=== PATIENT | female | born 1970 | race Caucasian/White ===

== ENCOUNTER 2016-10-08 15:10 | Emergency (ER) | payer OTHER ==
[~2016-10-08] VITALS: Ht 175.3 cm; Wt 95.3 kg
[~2016-10-08 15:10] MED LIST: NAPROSYN500 M1 PO; SERTRALINE HCL100 MG PO
--- NOTE | 2016-10-08 16:17 | ED NECK/BACK PAIN COMPLAINT ---
History of Present Illness General Chief Complaint: Low Back Pain/Injury Stated Complaint: LOWER BACK PAIN, X 1 MONTH Source: patient Exam Limitations: no limitations Vital Signs & Intake/Output Vital Signs & Intake/Output Vital Signs Date Time Temp Pulse Resp B/P Pulse O2 O2 Flow FiO2 Ox Delivery Rate 10/08 1710 98.2 70 16 144/80 98 Room Air Room Air 10/08 1628 Room Air Room Air 10/08 1513 97.2 72 16 143/76 98 Room Air Allergies Coded Allergies: NO KNOWN ALLERGIES (03/17/11) Reconcile Medications Cyclobenzaprine HCl 10 MG TABLET 1 TAB PO TID PRN MUSCLE RELAXANT MAY CAUSE DROWSINESS Hydrocodone/Acetaminophen (Vicodin 5-300 MG Tablet) 5 MG-300 MG TABLET 1 TAB PO Q6 PRN pain Meloxicam (Mobic) 15 MG TABLET 1 TAB PO DAILY PRN PAIN/INFLAMMATION Naproxen (Naprosyn) 500 MG TABLET 1 TAB PO BID PRN PAIN AND INFLAMMATION Sertraline HCl 100 MG TABLET 1 TAB PO DAILY MENTAL HEALTH (Reported) Triage Note: 45 Y/O FEMALE C/O LOW BACK PAIN X 1 MONTH, WORSENING THIS WEEK. STATES PAIN RADIATES DOWN BILATERAL LEGS. DENIES URINARY SYMPTOMS. DENIES INJURIES OR TRAUMA. STATES SHE HAS BEEN USING LIDODERM PATCHES AND BIO-FREEZE WITH NO RELIEF. Triage Nurses Notes Reviewed? yes HPI: Patient is a 45-year-old female presents complaining of severe low back pain. Pain onset approximately 1 month ago was initially right lumbar and over the past 4 weeks has been radiating to the midline and left lumbar area. Pain intermittently radiating down bilateral lower extremities. Pain is a sharp shooting pain currently severe. No improvement with ibuprofen, Lidoderm patch, Biofreeze. Patient does not recall any specific injury or cause of her pain. Patient denies numbness, weakness, incontinence, falls, rashes, fevers, unexplained weight loss, abdominal pain, hematuria, dysuria. (LEWIS ALANIS,IRENA) Past History Travel History Traveled to [place] past 21 day No Medical History Any Pertinent Medical History? see below for history Neurological: NONE EENT: NONE Cardiovascular: NONE Respiratory: NONE Gastrointestinal: NONE Hepatic: NONE Renal: NONE Musculoskeletal: NONE Psychiatric: anxiety Endocrine: NONE Blood Disorders: NONE Cancer(s): NONE SOLUTION DIRECTOR/Reproductive: NONE Surgical History Surgical History: non-contributory Psychosocial History What is your primary language Uzbek Tobacco Use: Current Daily Use Daily Tobacco Use Amount/Type: => 5 Cigarettes daily Family History Hx Contributory? No (IRENA ONTIVEORS) Review of Systems Review of Systems Constitutional: Denies: chills, fever. Eyes: Reports: no symptoms. Respiratory: Denies: cough, short of breath. Cardiovascular: Denies: chest pain. Gastrointestinal/Abdominal: Denies: abdominal pain. Musculoskeletal: Reports: see HPI. Skin: Reports: no symptoms. (IRENA ONTIVEROS) Physical Exam Physical Exam General Appearance: well developed/nourished, alert, awake Head: atraumatic, normal appearance Eyes: Bilateral: normal appearance. Ears, Nose, Throat, Mouth: hearing grossly normal, moist mucous membrane Neck: normal inspection, supple, full range of motion, no midline tenderness Respiratory: normal breath sounds, no respiratory distress, lungs clear Cardiovascular: regular rate/rhythm Peripheral Pulses: 2+ dorsalis pedis (R), 2+ dorsalis pedis (L) Gastrointestinal: normal bowel sounds, soft, non-tender, NO PALPABLE PULSATILE MASSES Back: normal inspection, normal range of motion, no vertebral tenderness, mild bilateral sacroiliac joint tenderness. No rashes or lesions Extremities: non-tender, normal range of motion Straight Leg Raising: Right: Negative. Left: Pain at ____ degrees (15). DTR: Patellar: 2: L4 Right, L4 Left. Achilles: 2: S1 Right, S1 Left. Neurologic/Psych: no motor/sensory deficits, awake, alert, oriented x 3, normal mood/affect Skin: intact, normal color, warm/dry (IRENA ONTIVEROS) Progress Differential Diagnosis: herniated disc, myofascial strain, sciatica, spinal cord inj, T/L spine injury, ureterolithiasis Plan of Care: Orders Procedure Date/time Status CT LUMB SPINE WO IV CONTRAST 10/08 1623 Active Current Medications Sig/Joselin Start time Last Medication Dose Stop Time Status Admin Acetaminophen/ 1 TAB ONCE ONE 10/08 1630 [facility] Hydrocodone Bitart 10/08 1631 (Vicodin) Dexamethasone 8 MG ONCE ONE 10/08 1630 [facility] (Decadron) 10/08 1631 Results of imaging discussed with patient. Does not appear to require emergent MRI imaging. Appears stable for discharge and outpatient follow-up. Patient provided with information for primary care provider follow-up. (LEWIS ALANIS,IRENA) Diagnostic Imaging: Viewed by Me: CT Scan. Discussed w/RAD: CT Scan. Radiology Impression: PATIENT: MONICA KISER PRESENT AGE: 45 PATIENT ACCOUNT NO: [id number] : 68 LOCATION: [facility] [place] ORDERING PHYSICIAN: IRENA ALANIS SERVICE DATE: 10/08/16 EXAM TYPE: CAT - CT LUMB SPINE WO IV CONTRAST EXAMINATION: CT LUMBAR SPINE WITHOUT CONTRAST CLINICAL INFORMATION: Severe low back pain with radiculopathy to both lower extremities COMPARISON: None TECHNIQUE: Axial images obtained through the lumbar spine. Coronal and sagittal reformatted images are performed at the CT scanner. DLP: 1025.44 mGy-cm FINDINGS: There is no acute change. Lumbar vertebrae have normal height and alignment. There is degenerative change of the spine. There is significant narrowing of the L3-L4 disc with vacuum disc phenomenon endplate sclerosis and endplate spurs of the vertebrae. Minimal degenerative lipping is seen at the anterior endplate of the remainder of lumbar vertebrae of the spine. There is moderate degenerative change at facet joints at L5-S1 bilateral. No paraspinal hematoma or mass. 1.9 cm hypodense lesion at the midpole of right kidney with density measurement of 17 Hounsfield units. The adrenal glands are normal. A few small vascular wall calcifications of the common iliac arteries. No aneurysm of the visualized aorta. Sacroiliac joints are normal. SPINAL LEVELS : T12-L1: Normal. L1-L2: Normal. L2-L3: Mild disc height narrowing. Small endplate spurs of the vertebrae anteriorly. No focal disc protrusion. No significant central canal stenosis. Neural foramina open. Facet joints are normal. L3-L4: Significant disc height narrowing with vacuum disc phenomenon. There is circumferential bulge of the annular fibers. No focal disc protrusion. Subchondral sclerosis and cystic changes at the endplates of the vertebrae. There is vertebral endplate spurs anteriorly. There is a posterior spur on the left at the inferior endplate of L3 encroaching into the left neural foramina. This does not significantly encroach upon the nerve root however. No central canal stenosis. Facet joints are normal. L4-L5: Mild bulge of the annular fibers of the disc circumferentially without focal disc protrusion. No significant central canal stenosis. Neural foramina are open. Facet joints are normal. L5-S1 : Lumbar disc height normal. No focal disc protrusion. No central canal stenosis. Neural foramina open. Degenerative change of facet joints with subchondral sclerosis spurring and vacuum changes of the joint IMPRESSION: 1. Marked degenerative change of the L3-L4 disc. Mild narrowing by posterior spur at the posterior inferior endplate of L3 at the left neural foramina. This does not significantly impress upon the nerve root however. 2. Degenerative facet joint arthrosis at L5-S1. 3. No focal disc protrusion or significant central canal stenosis. 4. Hypodense 1.9 cm lesion at the mid pole right kidney likely cortical cyst. This can be further assessed with renal ultrasound. DICTATED BY: EZ RENO MD DATE/TIME DICTATED:10/08/161699 DIRECTOR OF CURRICULUM AND INSTRUCTION:LYNDA DATE/TIME TRANSCRIBED:10/08/161699 CONFIDENTIAL, DO NOT COPY WITHOUT APPROPRIATE AUTHORIZATION. <Electronically signed in Other Vendor System> SIGNED BY: EZ RENO MD 10/08/161715 (IRENA ONTIVEROS) Departure Departure Time of Disposition: 1725 Disposition: HOME OR SELF CARE Condition: Stable Clinical Impression Primary Impression: Lumbar radiculopathy Referrals: SADA ERWIN DO PATIENT HAS NO PRIMARY CARE DR (PCP/Family) RIC CHUNG MD Additional Instructions: Apply heat to the affected area for 20 minutes 4-5 times a day. Follow-up with one of the primary doctors listed in her discharge paperwork to establish a doctor in for further evaluation. Return to the emergency department if numbness, weakness, incontinence, or worsening of symptoms. Departure Forms: Customer Survey General Discharge Information Prescriptions: Current Visit Scripts Meloxicam (Mobic) 1 TAB PO DAILY PRN PAIN/INFLAMMATION #10 TAB Hydrocodone/Acetaminophen (Vicodin 5-300 MG Tablet) 1 TAB PO Q6 PRN pain #10 TAB Cyclobenzaprine HCl 1 TAB PO TID PRN MUSCLE RELAXANT #20 TAB MAY CAUSE DROWSINESS (IRENA ONTIVEROS) PA/SALES ACCOUNT EXECUTIVE Co-Sign Statement Statement: ED Attending supervision documentation- [] I saw and evaluated the patient. I have also reviewed all the pertinent lab results and diagnostic results. I agree with the findings and the plan of care as documented in the PA's/SALES ACCOUNT EXECUTIVE's documentation. [X] I have reviewed the ED Record and agree with the PA's/SALES ACCOUNT EXECUTIVE's documentation. [] Additions or exceptions (if any) to the PAs/SALES ACCOUNT EXECUTIVE's note and plan are summarized below: [] (BRYCE TORRES DO)
[2016-10-08 17:10] VITALS: BP 144/80
--- NOTE | 2016-10-08 17:16 | CT SCAN REPORT ---
EXAMINATION: CT LUMBAR SPINE WITHOUT CONTRAST CLINICAL INFORMATION: Severe low back pain with radiculopathy to both lower extremities COMPARISON: None TECHNIQUE: Axial images obtained through the lumbar spine. Coronal and sagittal reformatted images are performed at the CT scanner. DLP: 1025.44 mGy-cm FINDINGS: There is no acute change. Lumbar vertebrae have normal height and alignment. There is degenerative change of the spine. There is significant narrowing of the L3-L4 disc with vacuum disc phenomenon endplate sclerosis and endplate spurs of the vertebrae. Minimal degenerative lipping is seen at the anterior endplate of the remainder of lumbar vertebrae of the spine. There is moderate degenerative change at facet joints at L5-S1 bilateral. No paraspinal hematoma or mass. 1.9 cm hypodense lesion at the midpole of right kidney with density measurement of 17 Hounsfield units. The adrenal glands are normal. A few small vascular wall calcifications of the common iliac arteries. No aneurysm of the visualized aorta. Sacroiliac joints are normal. SPINAL LEVELS: T12-L1: Normal. L1-L2: Normal. L2-L3: Mild disc height narrowing. Small endplate spurs of the vertebrae anteriorly. No focal disc protrusion. No significant central canal stenosis. Neural foramina open. Facet joints are normal. L3-L4: Significant disc height narrowing with vacuum disc phenomenon. There is circumferential bulge of the annular fibers. No focal disc protrusion. Subchondral sclerosis and cystic changes at the endplates of the vertebrae. There is vertebral endplate spurs anteriorly. There is a posterior spur on the left at the inferior endplate of L3 encroaching into the left neural foramina. This does not significantly encroach upon the nerve root however. No central canal stenosis. Facet joints are normal. L4-L5: Mild bulge of the annular fibers of the disc circumferentially without focal disc protrusion. No significant central canal stenosis. Neural foramina are open. Facet joints are normal. L5-S1: Lumbar disc height normal. No focal disc protrusion. No central canal stenosis. Neural foramina open. Degenerative change of facet joints with subchondral sclerosis spurring and vacuum changes of the joint IMPRESSION: 1. Marked degenerative change of the L3-L4 disc. Mild narrowing by posterior spur at the posterior inferior endplate of L3 at the left neural foramina. This does not significantly impress upon the nerve root however. 2. Degenerative facet joint arthrosis at L5-S1. 3. No focal disc protrusion or significant central canal stenosis. 4. Hypodense 1.9 cm lesion at the mid pole right kidney likely cortical cyst. This can be further assessed with renal ultrasound.
[2016-10-08] MEDS ORDERED: MOBIC15 M1 PO (17:28)
[2016-10-08] MEDS ORDERED: VICODIN 5-3001 EACH PO (17:28)
[2016-10-08] MEDS ORDERED: CYCLOBENZAPRINE10 M1 PO (17:28)
== END 2016-10-08 18:17 ==
LOC: ERH 15:10
DX: M54.16 Radiculopathy, lumbar region (principal)